=== PATIENT | female | born 2000 | race Two or more races ===

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

== ENCOUNTER 2021-04-12 00:04 | Emergency (ER) | payer OTHER ==
[~2021-04-12] VITALS: Ht 162.6 cm; Wt 47.2 kg
--- NOTE | 2021-04-12 00:29 | NUR ---
PT AAOX4, BIB MOM FOR C/O TROUBLE BREATHING X 1 DAY. PLACED IN BED 7 ON MONITOR AND PULSE OX. RR EVEN AND UNLABORED.
--- NOTE | 2021-04-12 00:40 | NUR ---
CALLED RT FOR BREATHING TREATMENT.
[2021-04-12] MEDS ORDERED: predniSONE 20 MG TABLET ONE (00:46)
[2021-04-12] MEDS ORDERED: ALBUTEROL FS 2.5 MG/3 ML VIAL.NEB ONE (00:47)
[2021-04-12] MEDS ORDERED: IPRATROPIUM NEB FS 0.5 MG/2.5 ML AMPUL.NEB ONE (00:47)
[2021-04-12] MEDS ORDERED: IPRATROPIUM NEB FS 0.5 MG/2.5 ML AMPUL.NEB NEB ONE (01:00)
[2021-04-12] MEDS ORDERED: ALBUTEROL SULFATE INH 18 GM HFA.AER.AD IH PRN (01:00)
[2021-04-12] MEDS ORDERED: predniSONE 20 MG TABLET PO ONE (01:00)
[2021-04-12] MEDS ORDERED: ALBUTEROL FS 2.5 MG/3 ML VIAL.NEB NEB ONE (01:00)
[2021-04-12] MEDS ORDERED: PRED20TA PO (02:20)
[2021-04-12 02:29] VITALS: BP 110/61
== END 2021-04-12 02:30 | disposition home or self-care (01) ==
LOC: ER 00:04
DX: U07.1 COVID-19 (principal); J45.909 Unspecified asthma, uncomplicated
CPT/HCPCS: 71045; 99283; J7512

== ENCOUNTER 2023-11-20 22:05 | Emergency (ER) | payer OTHER ==
[~2023-11-20] VITALS: Ht 157.5 cm; Wt 51.7 kg
[~2023-11-20 22:05] MED LIST: PRED20TA PO
[2023-11-21 00:20] VITALS: BP 97/43; TEMP 97.1
[2023-11-21] MEDS ORDERED: KETOROLAC TROMETHAMINE INJ 30 MG/ML VIAL ONE (02:46)
[2023-11-21] MEDS: KETOROLAC TROMETHAMINE INJ 60 MG/2 ML VIAL IM ONE (02:51)
[2023-11-21] MEDS ORDERED: NAPR-1009 PO (03:38)
[2023-11-21 03:55] VITALS: O2SAT 98
== END 2023-11-21 03:56 | disposition home or self-care (01) ==
LOC: ER 22:08
DX: S63.502A Unspecified sprain of left wrist, initial encounter (principal); J45.909 Unspecified asthma, uncomplicated; Z86.16 Personal history of COVID-19; W18.30XA Fall on same level, unspecified, initial encounter; Y93.89 Activity, other specified; Y92.89 Other specified places as the place of occurrence of the external cause; Y99.8 Other external cause status
CPT/HCPCS: 29125; 73110; 73200; 96372; 99285; J1885